=== PATIENT | female | born 1985 | race Caucasian/White ===

== ENCOUNTER 2017-12-17 11:15 | Day surgery (SDC) | payer OTHER ==
[2017-12-16 12:48] VITALS: BMI 29.6
[2017-12-17] MEDS ORDERED: SCOPOLAMINE HYDROBROMIDE 1 PATCH PATCH.TD72 ONE (13:18)
[2017-12-17] MEDS ORDERED: ONDANSETRON 4 MG/2 ML VIAL IVPUSH PRN (13:24)
[2017-12-17] MEDS ORDERED: LACTATED RINGERS SOLUTION 1,000 ML IV SCH (13:30)
[2017-12-17] MEDS ORDERED: DEXAMETHASONE SOD PHOSPHATE 4 MG/1 ML VIAL ONE (13:43)
[2017-12-17] MEDS ORDERED: MIDAZOLAM HCL 2 MG/2 ML SINGLE DOSE VIAL ONE (13:43)
[2017-12-17] MEDS ORDERED: SUCCINYLCHOLINE CHLORIDE 200 MG/10 ML VIAL ONE (13:43)
[2017-12-17] MEDS ORDERED: ONDANSETRON 4 MG/2 ML VIAL ONE ×3 (13:43→18:45)
[2017-12-17] MEDS ORDERED: PROPOFOL 20 ML ONE (13:43)
[2017-12-17] MEDS ORDERED: LIDOCAINE HCL/PF 2% SDV 5ML VIAL ONE (13:43)
[2017-12-17] MEDS ORDERED: fentaNYL CITRATE 250 MCG/5 ML VIAL ONE (13:43)
[2017-12-17] MEDS ORDERED: ceFAZolin SODIUM 1 GM VIAL ONE (14:07)
[2017-12-17] MEDS ORDERED: LIDOCAINE 1%/EPI 1:100000 (20 ML MULTI DOSE VIAL) IJ ONE (14:20)
--- NOTE | 2017-12-17 17:20 | OP ---
Operative Note - Note: Operative Date: 12/17/17 Pre-Operative Diagnosis: hypertrophy of breast bilaterally Operation: bilateral breast reduction Surgeon: Sean Jacobo Registry Rn: Samina Sears Anesthesiologist/CHEMIST ASSISTANT: Barbra Davis Anesthesia: General Specimens Removed: bilateral breast tissue Estimated Blood Loss (mls): 50 Fluid Volume Replaced (mls): 550 Operative Report Dictated: Yes
--- NOTE | 2017-12-17 17:21 | SURG ---
Surgery Group Account Director Note Group Account Director: Samina Sears PA-C Date of Service: 12/17/17 Diagnosis: bilateral breast hypertrophy Procedure: bilateral breast reduction I was present for the entirety of the operative procedure. For further detail, please refer to operative report. Visit type - Case Type Case Type: Scheduled - Emergency Emergency Visit: No - New patient This patient is new to me today: Yes Date on this admission: 12/17/17
[2017-12-17] MEDS ORDERED: oxyCODONE HCL 5 MG TABLET PO PRN ×2 (17:28)
[2017-12-17] MEDS ORDERED: ACETAMINOPHEN 1000 MG/100 ML VIAL (NON FORMULARY) IVPB ONE (17:45)
[2017-12-17] MEDS ORDERED: ONDANSETRON 4 MG/2 ML VIAL IVPB ONE (18:45)
[2017-12-17 19:27] VITALS: TEMP 97.8
[2017-12-17 20:19] VITALS: BP 117/63; PULSE 66
--- NOTE | 2017-12-18 14:51 | OP ---
DATE OF OPERATION: 12/17/2017 SURGEON: Harsh Jacobo MD BOX TOE CUTTER SURGEON: Samina Sears PA-C PREOPERATIVE DIAGNOSIS: Bilateral symptomatic macromastia. POSTOPERATIVE DIAGNOSIS: Bilateral symptomatic macromastia. OPERATIVE PROCEDURE: Bilateral reduction mammoplasty. OPERATIVE INDICATION: The patient is a young woman who has very large E cup breasts bilaterally and has back pain, shoulder grooving and intertrigo. The risks and benefits of surgical versus nonsurgical alternatives as well as material complications including scar deformities of the breasts were discussed with the patient preoperatively on multiple occasions. She agreed to the planned procedures, understood the subsequent scars and was willing to except the procedure in lieu of her discomfort and for better pain relief. OPERATIVE PROCEDURE IN DETAIL: The patient was taken to the operating room and after induction of general anesthesia, the markings which were made in the standing position preoperatively was outlined for a Wyman pattern reduction mammoplasty with inferior glandular pedicle technique was carried out. These were reconfirmed and re-measured and re-marked in the lying and sitting positions on the table. At this point, 1% local lidocaine anesthesia with 1:100,000 epinephrine was injected around the planned incisions and then after allowing topical anesthesia and hemostasis a No. 42 nipple areolar cutter was circumscribed around the right nipple areolar complex. Dissection was then carried out by de-epithelializing the pedicle of the right breast and then carrying out an 8 cm wide pedicle down to the chest wall on all sides, leaving the pedicle attached to the chest wall in the central portions of the gland. Once this was accomplished, blocks of tissue were removed in the usual sterile fashion from the lateral, medial and central portions of the breast. Approximately 500 g of tissue were removed from the right breast. Hemostasis was meticulously obtained throughout. The pedicle was tacked into position using 2-0 Vicryl sutures in interrupted fashion, centralizing the pedicle which showed good blood flow and contour at this point. The skin and subcutaneous tissues were then advanced and closed upon themselves in the usual vertical and inframammary fashion using 2-0 Vicryl sutures in the deep tissue, 3-0 Biosyn on the deep dermis and a running subcuticular 3-0 V-Loc on the skin. The nipple areolar complex was brought into its new anatomic position and sutured using 3-0 Biosyn and 3-0 V-Loc suture. Good viability and contour and pinkness were shown of the nipple areolar complex. The exact same procedure was carried out symmetrically on the opposite side, removing almost exactly the same volume of tissue from the left breast as the right. This tissue was all sent individually for pathologic diagnosis to pathology. The exact same closure was carried out symmetrically on both sides. All wounds were then dressed with Dermabond, Steri-Strips and fluff dressing and a surgical bra. She tolerated the procedure well. She went to the recovery room in satisfactory condition. HARSH JACOBO M.D. [id number]
--- NOTE | 2017-12-22 14:52 | PATH ---
Surgical Pathology Report Patient Name: KAYCEE HAGAN Med. Rec. #: [id number] /Age/Gender: 1985 (Age: 32) / F Account: [id number] Location: [facility] Taken: 12/17/2017 Received: 12/20/2017 Reported: 12/22/2017 Physicians: Sean Jacobo Specimen(s) Received A: RIGHT BREAST REDUCTION B: LEFT BREAST REDUCTION Clinical History Breast hypertrophy Final Diagnosis A. BREAST TISSUE, RIGHT, REDUCTION: BENIGN BREAST TISSUE. SKIN WITH NO PATHOLOGIC FINDINGS. B. BREAST TISSUE, LEFT, REDUCTION: BENIGN BREAST TISSUE. SKIN WITH NO PATHOLOGIC FINDINGS. Electronically Signed Nakia Lowe M.D. Gross Description A. Received in formalin, labeled "right breast," is a 448 gram, 14 x 13 x 5 cm. fibroadipose and overlying skin. No surface lesions identified. Sectioning reveals abundant yellow homogenous parenchyma with focal dense white fibrous tissue.. Orientation & Mobility Specialist sections are submitted in one cassette. B. Received in formalin, labeled "left breast," is a 481 gram, 15 x 15 x 6 cm. fibroadipose and overlying skin. No surface lesions identified. Sectioning reveals abundant yellow homogenous parenchyma with focal dense white fibrous tissue.. Orientation & Mobility Specialist sections are submitted in one cassette. HEBER/12/20/2017 albert/12/20/2017
== END 2017-12-17 20:15 | disposition home or self-care (01) ==
LOC: JASU-SURG 11:15
PROVIDERS: ATTEND Plastic Surgery
PROC: 0HBV0ZZ Excision of Bilateral Breast, Open Approach (ICD-10-PCS; principal; 2017-12-17 13:00)
DX: N62 Hypertrophy of breast (principal); M54.89 Other dorsalgia; M25.512 Pain in left shoulder; M25.511 Pain in right shoulder
CPT/HCPCS: 84703; 88304-TC; 94760; J0131